=== PATIENT | female | born 1975 | race Caucasian/White ===

== ENCOUNTER 2024-12-25 21:37 | Emergency (ER) | payer OTHER ==
[2024-12-25] MEDS ORDERED: NA CHLORIDE 0.9% 1,000 ML ONE (22:05)
[2024-12-25] MEDS ORDERED: FAMOTIDINE 20 MG/2 ML VIAL IV ONE (22:05)
[2024-12-25 22:13] LABS: Absolute Lymphocytes (CBC) 3.7 K/uL (0.7-4.9); Hematocrit 42.1 % (36.0-45.0); Hemoglobin 14.2 g/dL (12.0-15.0); MCH 32.2 pg (27.0-35.0); MCHC 33.7 g/dL (32.0-36.0); MCV 95.6 fL (80-100); MPV 7.0 fL (7.6-11.3); Nucleated RBC Absolute Count 0.0 (0-0); Nucleated Red Blood Cells % 0.1 % (0-0); RBC Red Blood Cell Count 4.40 M/uL (3.86-4.86); White Blood Count 9.20 thou/uL (4.3-10.9)
[2024-12-25 22:34] LABS: ALT/SGPT 35.0 U/L (13-56); AST/SGOT 90.0 U/L (15-37); Albumin 3.9 g/dL (3.4-5.0); Albumin/Globulin Ratio 1.0 (1.1-1.8); Alkaline Phosphatase 206.0 U/L (45-117); Anion Gap 12.9 mEq/L (5.0-15.0); BUN Blood Urea Nitrogen 7.0 mg/dL (7-18); Globulin 3.9 g/dL (2.3-3.5); Glucose Level 94.0 mg/dL (74-106); Lipase 41.0 U/L (13-75); Potassium 3.9 mEq/L (3.5-5.1)
[2024-12-25 22:47] LABS: Anisocytosis 1+; Blood Morphology Comment NOTED (NOT SEEN); Macrocytosis SLIGHT; Microcytosis SLIGHT; White Blood Cell Scan OK (OK)
[2024-12-25] MEDS ORDERED: PANTOPRAZOLE 40 MG INJ ONE (23:33)
[2024-12-25] MEDS ORDERED: MAGNES/ALUMIN/SIMET 30ML UCUP ONE (23:34)
--- NOTE | 2024-12-26 00:12 | EDPHYS ---
Physician Documentation [facility] Name: Raquel Nguyen Age: 49 yrs Sex: Female : 1975 Arrival Date: 12/25/2024 Time: 21:37 Bed 3 Private MD: ED Physician Bonifacio Stahl HPI: 12/26 18:08 This 49 yrs old Female presents to ER via Ambulatory with complaints of nausea and tt7 vomiting. 18:08 Patient reports 2 weeks of nausea and vomiting, some associated intermittent epigastric tt7 burning pain, states she's had decreased appetite and not been able to tolerate eating much food over the past 2 days, past medical history of hypertension and rosacea. 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 - Infectious Disease History:: Denies. - Social history:: Smoking status: Patient reports the use of cigarette tobacco products, smokes one-half pack cigarettes per day, Patient uses alcohol, on a daily basis. 8-12 beers/day . ROS: 12/26 18:09 Constitutional: negative for fever. Cardiovascular: negative for chest pain. tt7 Respiratory: negative for shortness of breath. MS/Extremity: negative for injury and deformity. Skin: negative for rash. Neuro: negative for focal weakness. Abdomen/GI: Positive for abdominal pain, nausea and vomiting, Exam: 18:10 Constitutional: vital signs reviewed, well appearing, breath smells of alcohol. tt7 Head/Face: normocephalic, atraumatic. Eyes: no conjunctival injection, anicteric sclerae. ENT: mucus membranes moist. Neck: trachea midline, no JVD, no meningismus. Cardiovascular: regular rate and rhythm, no murmurs, no rubs, no lower extremity edema. Respiratory: normal respiratory effort, no accessory muscle use, lungs CTAB. Abdomen/GI: soft, nondistended, nontender, no guarding or rebound, negative Hopper's sign, no McBurney point tenderness. Back: normal ROM. Skin: warm, dry, intact, normal turgor, normal color, no rash. MS/ Extremity: normal ROM of extremities, no gross deformities. Neuro: alert and oriented with appropriate mental status, normal speech, follows commands, no focal neurologic deficits. Psych: appropriate mood and affect. Vital Signs: 12/25 21:49 BP 169 / 109; Pulse 90; Resp 16; Temp 97.8; Pulse Ox 100% on R/A; kb4 22:59 BP 133 / 91; Pulse 88; Resp 17 S; Pulse Ox 100% on R/A; lg3 12/26 00:20 BP 146 / 99; Pulse 88; Resp 18; Pulse Ox 100% on R/A; mf3 MDM: 12/25 21:51 Medical Screening Exam initiated tt7 12/26 18:11 Differential diagnosis: Nonspecific abd pain, gastritis, pancreatitis, viral tt7 gastroenteritis. Data reviewed: vital signs, nurses notes, lab test result(s), amylase and lipase, Beta HCG: CBC, drug level(s), electrolytes, hepatic panel. I considered the following discharge prescriptions or medication management in the emergency department Antibiotics: At this time antibiotics are not recommended. Test considered but Not performed: CT: Considered CT imaging of the abdomen/pelvis but not feel that this is necessary at this time given benign abdominal exam and low suspicion for acute surgical pathology. Historians other than the Patient: Spouse/Significant Other: Provided collateral history regarding chronicity of symptoms and medical history. Care significantly affected by the following Social Determinants of Health: Misuse of alcohol and/or drugs. ED course: 49-year-old female with epigastric burning pain and associated nausea and vomiting, her vital signs are stable, abdominal exam is benign, she was treated with droperidol for her nausea and famotidine for her pain, was resuscitated with IV fluids, standard abdominal pain laboratory studies ordered, overall these are reassuring, no significant leukocytosis to be concerned about infection, no significant anemia, chemistry shows overall normal electrolytes, lipase is normal, test negative, patient's ethanol is elevated above 160, this provides further evidence to support my initial impression of alcoholic gastritis, patient was treated with Maalox and Protonix, her symptoms improved significantly and she requested to be discharged from the emergency department, emergency department evaluation is reassuring. I do not suspect life-threatening process. Patient is stable and not in need of emergent medical intervention. I had a detailed discussion with the patient regarding the historical points, exam findings, emergency department evaluation, diagnostic results, and the discharge diagnosis. I discussed outpatient management of the patient's condition. I discussed the need for outpatient follow-up with primary care and relevant specialist. I discussed return precautions including the need to return to the ED if symptoms do not improve, worsen, or if there are any questions or concerns that arise at home. The patient was discharged in stable condition. 12/25 21:58 Order name: CBC with Diff; Complete Time: 23:06 tt7 12/25 21:58 Order name: CMP; Complete Time: 23:06 tt7 12/25 21:58 Order name: Lipase; Complete Time: 23:06 tt7 12/25 21:58 Order name: Test, Serum; Complete Time: 23:06 tt7 12/25 22:03 Order name: ETOH Level; Complete Time: 23:06 tt7 12/25 22:18 Order name: CBC Smear Scan; Complete Time: 23:06 EDMS 12/25 21:58 Order name: IV Saline Lock; Complete Time: 22:00 tt7 12/25 21:58 Order name: Labs collected and sent; Complete Time: 22:00 tt7 Administered Medications: 12/25 22:11 Drug: Famotidine IVP 20 mg IVP once; dilute with 10 mL 0.9% NaCl; give over 2 minutes 3 Route: IVP; Site: right antecubital; 12/26 00:22 Follow up: Response: No adverse reaction [facility] 12/25 22:11 Drug: NS 0.9% IV 1000 ml IV at 1 bolus Per protocol; to be given as a bolus over 60 mf3 minutes Route: IV; Rate: 1 bolus; Site: right antecubital; 12/26 00:22 Follow up: Response: No adverse reaction; IV Status: Completed infusion 3 12/25 22:11 Drug: Droperidol IVP 1.25 mg IVP once Route: IVP; Site: right antecubital; 3 23:21 Follow up: Response: No adverse reaction; Nausea is decreased cp4 12/26 00:22 Follow up: Response: No adverse reaction 3 12/25 23:38 Drug: Alum-Mag Hydroxide-Simeth PO Suspension (200 mg-200 mg-20 mg/5 mL) 30 ml PO once 3 Route: PO; 12/26 00:21 Follow up: Response: No adverse reaction 3 12/25 23:39 Drug: Pantoprazole IVP 40 mg IVP once Route: IVP; Site: right antecubital; 3 12/26 00:21 Follow up: Response: No adverse reaction 3 Disposition: 18:17 Co-signature as Attending Physician, Bonifacio Stahl DO. tt7 Disposition Summary: 12/26/24 00:11 Discharge Ordered Notes: Location: Home tt7 Problem: new tt7 Symptoms: are resolved tt7 Condition: Stable tt7 Diagnosis - Acute gastritis without bleeding tt7 - Nausea with vomiting, unspecified tt7 Followup: tt7 - With: Emergency Department - When: As needed - Reason: Followup: tt7 - With: Private Physician - When: 1 - 2 days - Reason: Recheck today's complaints, Re-evaluation by your physician Discharge Instructions: - Discharge Summary Sheet tt7 - Gastritis, Adult, [id number] tt7 Forms: - Medication Reconciliation Form tt7 - Antibiotic Education tt7 - Prescription Opioid Use tt7 - Patient Portal Instructions tt7 - Leadership Thank You Letter tt7 Prescriptions: - Nexium 20 mg Oral Capsule - take 1 capsule ORAL route once daily; 20 capsule; Refills: 0, Product Selection tt7 Permitted - Pepcid 20 mg Oral Tablet - take 1 tablet ORAL route once daily for 10 days; 10 tablet; Refills: 0, Product tt7 Selection Permitted Signatures: Dispatcher [employer] EDRoseline Rojas RN RN kb4 Malissa Navas RN RN mf3 Bonifacio Stahl DO DO tt7 Raegan Ravi 4 Corrections: (The following items were deleted from the chart) 12/25 21:59 21:59 CBC+H.LAB.BRZ ordered. EDMS EDMS 21:59 21:59 COMPREHENSIVE METABOLIC PANEL+C.LAB.BRZ ordered. EDMS EDMS 21:59 21:59 LIPASE+C.LAB.BRZ ordered. EDMS EDMS 21:59 21:59 TEST, SERUM+SC.LAB.BRZ ordered. EDMS EDMS
--- NOTE | 2024-12-26 00:12 | ER ---
Nurse's Notes [facility] Name: Raquel Nguyen Age: 49 yrs Sex: Female : 1975 Arrival Date: 12/25/2024 Time: 21:37 Bed 3 Private MD: Diagnosis: Acute gastritis without bleeding;Nausea with vomiting, unspecified Presentation: 12/25 21:49 Chief complaint: Patient states: N/V started 2wks ago, progressively gotten worse in kb4 the past 2-3 days, vomiting "white frothy liquid". Coronavirus screen: At this time, unable to obtain information related to travel outside the [place] Ebola Screen: No symptoms or risks identified at this time. Initial Sepsis Screen: Does the patient meet any 2 criteria? No. Patient's initial sepsis screen is negative. Does the patient have a suspected source of infection? No. Patient's initial sepsis screen is negative. Risk Assessment: Do you want to hurt yourself or someone else? Patient reports no desire to harm self or others. Onset of symptoms was December 13, 2024. 21:49 Method Of Arrival: Ambulatory [facility] 21:49 Acuity: YISEL 3 kb4 Triage Assessment: 21:53 Headache History: Denies prior headaches. General: Appears in no apparent distress. kb4 uncomfortable, Behavior is calm, cooperative, Smells of alcohol. Pain: Pain currently is 6 out of 10 on a pain scale. Pain began 2-3 days ago. Pain: Also complains of decreased appetite, nausea. Neuro: Level of Consciousness is awake, alert, obeys commands, Oriented to person, place, time, situation. 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 - Infectious Disease History:: Denies. - Social history:: Smoking status: Patient reports the use of cigarette tobacco products, smokes one-half pack cigarettes per day, Patient uses alcohol, on a daily basis. 8-12 beers/day . Screenin:[address] [facility] ED Fall Risk Assessment (Adult) History of falling in the last 3 months, cp4 including since admission No falls in past 3 months (0 pts) Confusion or Disorientation No (0 pts) Intoxicated or Sedated No (0 pts) Impaired Gait No (0 pts) Mobility Assist Device Used No (0 pt) Altered Elimination No (0 pt) Score/Fall Risk Level 0 - 2 = Low Risk Oriented to surroundings, Maintained a safe environment, Assessed \\T\\ reinforced patient's understanding of fall precautions, Hourly rounding (assess needs \\T\\ fall precautionary measures) done. Abuse screen: Denies threats or abuse. Denies injuries from another. Nutritional screening: No deficits noted. Tuberculosis screening: No symptoms or risk factors identified. Never had TB. Assessment: 21:58 General: Appears in no apparent distress. uncomfortable, Behavior is calm, cooperative, cp4 appropriate for age. Pain: Complains of pain in abdomen Pain does not radiate. Pain currently is 7 out of 10 on a pain scale. Neuro: Level of Consciousness is awake, alert, obeys commands, Oriented to person, place, time, situation. Cardiovascular: Patient's skin is warm and dry. Respiratory: Airway is patent Respiratory effort is even, unlabored. GI: Abdomen is round non-distended, Bowel sounds present X 4 quads. Abd is soft and non tender X 4 quads. Reports nausea, vomiting. : No signs and/or symptoms were reported regarding the genitourinary system. EENT: No signs and/or symptoms were reported regarding the EENT system. Derm: No signs and/or symptoms reported regarding the dermatologic system. Musculoskeletal: No signs and/or symptoms reported regarding the musculoskeletal system. Vital Signs: 21:49 BP 169 / 109; Pulse 90; Resp 16; Temp 97.8; Pulse Ox 100% on R/A; kb4 22:59 BP 133 / 91; Pulse 88; Resp 17 S; Pulse Ox 100% on R/A; lg3 12/26 00:20 BP 146 / 99; Pulse 88; Resp 18; Pulse Ox 100% on R/A; mf3 ED Course: 12/25 21:40 Patient arrived in ED. im 21:46 Sarah Sierra, RN is Primary Nurse. lg3 21:50 No provider procedures requiring assistance completed. Inserted saline lock: 20 gauge cp4 in right antecubital area, using aseptic technique. Blood collected. Flushed with 10 mL NS. 21:51 Bonifacio Stahl DO is Attending Physician. tt7 21:51 Triage completed. kb4 21:53 Arm band placed on right wrist. kb4 21:58 Bed in low position. Call light in reach. Side rails up X2. cp4 12/26 00:21 IV discontinued, intact, bleeding controlled, No redness/swelling at site. [facility] 00:21 Provided Education on: pt educated on discharge. [facility] Administered Medications: 12/25 22:11 Drug: Famotidine IVP 20 mg IVP once; dilute with 10 mL 0.9% NaCl; give over 2 minutes [facility] Route: IVP; Site: right antecubital; 12/26 00:22 Follow up: Response: No adverse reaction [facility] 12/25 22:11 Drug: NS 0.9% IV 1000 ml IV at 1 bolus Per protocol; to be given as a bolus over 60 3 minutes Route: IV; Rate: 1 bolus; Site: right antecubital; 12/26 00:22 Follow up: Response: No adverse reaction; IV Status: Completed infusion [facility] 12/25 22:11 Drug: Droperidol IVP 1.25 mg IVP once Route: IVP; Site: right antecubital; [facility] 23:21 Follow up: Response: No adverse reaction; Nausea is decreased [facility] 12/26 00:22 Follow up: Response: No adverse reaction [facility] 12/25 23:38 Drug: Alum-Mag Hydroxide-Simeth PO Suspension (200 mg-200 mg-20 mg/5 mL) 30 ml PO once [facility] Route: PO; 12/26 00:21 Follow up: Response: No adverse reaction [facility] 12/25 23:39 Drug: Pantoprazole IVP 40 mg IVP once Route: IVP; Site: right antecubital; [facility] 12/26 00:21 Follow up: Response: No adverse reaction [facility] Medication: 12/25 21:58 VIS not applicable for this client. cp4 Outcome: 12/26 00:11 Discharge ordered by . tt7 00:21 Discharged to [facility] 00:21 Discharged to home 00:21 Condition: good 00:21 Discharge instructions given to patient, family, Instructed on discharge instructions, follow up and referral plans. Demonstrated understanding of instructions, follow-up care, medications, Prescriptions given X 2, 00:22 Patient left the ED. mf3 Signatures: Sarah Sierra RN RN lg3 Kay Lance Christina cp4 Roseline Lopez RN RN kb4 Malissa Navas RN RN mf3 Bonifacio Stahl, DO JACKSON tt7
[2024-12-26 00:57] VITALS: TEMP 97.8; O2SAT 100
[2024-12-26 01:00] VITALS: BP 146/99
== END 2024-12-26 00:22 | disposition home or self-care (01) ==
LOC: ER 21:37
DX: K29.00 Acute gastritis without bleeding (principal); R11.2 Nausea with vomiting, unspecified; I10 Essential (primary) hypertension; L71.9 Rosacea, unspecified; F17.210 Nicotine dependence, cigarettes, uncomplicated
CPT/HCPCS: 96361; 85025; 36415; 84703; 83690; 80053; 96375; 96374; 99284; 82077; J2470; J1790; J7030

== ENCOUNTER 2025-01-03 13:28 | Emergency (ER) | payer OTHER ==
[2025-01-03] MEDS ORDERED: NA CHLORIDE 0.9% 1,000 ML ONE (14:55)
[2025-01-03] MEDS ORDERED: FAMOTIDINE 20 MG/2 ML VIAL IV ONE (14:55)
[2025-01-03 15:01] LABS: Absolute Lymphocytes (CBC) 1.1 K/uL (0.7-4.9); Hematocrit 40.7 % (36.0-45.0); Hemoglobin 13.6 g/dL (12.0-15.0); MCH 32.6 pg (27.0-35.0); MCHC 33.5 g/dL (32.0-36.0); MCV 97.1 fL (80-100); MPV 7.2 fL (7.6-11.3); Nucleated RBC Absolute Count 0.0 (0-0); Nucleated Red Blood Cells % 0.0 % (0-0); RBC Red Blood Cell Count 4.19 M/uL (3.86-4.86); White Blood Count 4.00 thou/uL (4.3-10.9)
[2025-01-03 15:20] LABS: ALT/SGPT 47.0 U/L (13-56); AST/SGOT 121.0 U/L (15-37); Albumin 3.5 g/dL (3.4-5.0); Albumin/Globulin Ratio 1.1 (1.1-1.8); Alkaline Phosphatase 203.0 U/L (45-117); Anion Gap 6.1 mEq/L (5.0-15.0); BUN Blood Urea Nitrogen 8.0 mg/dL (7-18); Globulin 3.3 g/dL (2.3-3.5); Glucose Level 119.0 mg/dL (74-106); Lipase 19.0 U/L (13-75); Potassium 4.1 mEq/L (3.5-5.1)
[2025-01-03 16:01] LABS: Anisocytosis 1+; Blood Morphology Comment NOTED (NOT SEEN); White Blood Cell Scan OK (OK)
[2025-01-03] MEDS ORDERED: DIPHENHYDRAMINE 50 MG/ML VIAL ONE (16:17)
[2025-01-03] MEDS ORDERED: METHYLPREDNISOLONE 40 MG INJ ONE (16:17)
[2025-01-03] MEDS ORDERED: WATER FOR INJ,STERILE 10 ML ONE (16:21)
[2025-01-03] MEDS ORDERED: METOCLOPRAMIDE 10 MG/2mL INJ ONE (16:30)
[2025-01-03] MEDS ORDERED: NA CHLORIDE 0.9% 50 ML ONE (16:38)
--- NOTE | 2025-01-03 17:37 | RAD REPORT ---
EXAMINATION: CT ABDOMEN AND PELVIS WITH CONTRAST CLINICAL INDICATION: Abdominal pain TECHNIQUE: CT abdomen and pelvis was performed, after the administration of 100 cc Isovue-300.. Sagit sheldon and coronal reconstructions were obtained. One or more of the following dose reduction techniques were used: Automated exposure control, adjustment of the mA and kV according to patient si ze, and iterative reconstruction. Unless otherwise specified, incidental findings do not require dedicated imaging follow-up. [id number]. Oral contrast was not given which limits evaluation of bowel and appendix. COMPARISON: .None FINDINGS: Marked fatty liver. Cholecystectomy Post surgical changes involve the stomach. The spleen, pancreas, adrenals and kidneys appear unremarkable Normal appendix. The wall of the hepatic flexure of the colon appears mildly thickened. No adnexal mass. No evidence of diverticulitis. : IMPRESSION: Marked fatty liver. The wall of the hepatic flexure of the transverse colon appears mildly thickened. This may be seconda ry to inflammation or incomplete distention.
[2025-01-03] MEDS ORDERED: CEFTRIAXONE 1000 MG/VIAL ONE (17:54)
[2025-01-03] MEDS ORDERED: METRONIDAZOLE 500mg IVPB 500 MG/100 ML BAG IV ONE (17:55)
[2025-01-03] MEDS ORDERED: NA CHLORIDE 0.9% 100 ML ONE (17:55)
--- NOTE | 2025-01-03 18:05 | ER ---
Nurse's Notes [facility] Name: Raquel Nguyen Age: 49 yrs Sex: Female : 1975 Arrival Date: 01/03/2025 Time: 13:28 Bed 8 Private MD: Diagnosis: Infectious gastroenteritis and colitis, unspecified;Fatty (change of) liver, not elsewhere classified Presentation: 01/03 14:08 Chief complaint: Patient states: EPIGASTRIC PAIN, N/V THAT BEGAN FRIDAY. PT REPORTS dd2 SHE WAS HERE LAST WEEK WITH SAME SYMPTOMS, SENT HOME WITH GASTRITIS DX. Coronavirus screen: At this time, the client does not indicate any symptoms associated with coronavirus-19. Ebola Screen: No symptoms or risks identified at this time. Initial Sepsis Screen: Does the patient meet any 2 criteria? No. Patient's initial sepsis screen is negative. Does the patient have a suspected source of infection? No. Patient's initial sepsis screen is negative. Risk Assessment: Do you want to hurt yourself or someone else? Patient reports no desire to harm self or others. Onset of symptoms was December 31, 2024. 14:08 Method Of Arrival: Ambulatory dd2 14:08 Acuity: YISEL 3 dd2 Triage Assessment: 14:10 General: Appears in no apparent distress. uncomfortable, Behavior is calm, cooperative, dd2 appropriate for age. Pain: Complains of pain in epigastric area. GI: Reports epigastric pain, intolerance of fluids, intolerance of food, nausea, vomiting. 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 - Infectious Disease History:: Denies. - Social history:: Smoking status: Patient reports the use of cigarette tobacco products, smokes one-half pack cigarettes per day. Screenin:56 [facility] ED Fall Risk Assessment (Adult) History of falling in the last 3 months, af3 including since admission No falls in past 3 months (0 pts) Confusion or Disorientation No (0 pts) Intoxicated or Sedated No (0 pts) Impaired Gait No (0 pts) Mobility Assist Device Used No (0 pt) Altered Elimination No (0 pt) Score/Fall Risk Level 0 - 2 = Low Risk Oriented to surroundings, Maintained a safe environment, Educated pt \T\ family on fall prevention, incl call for assistance when getting out of bed. Abuse screen: Denies threats or abuse. Denies injuries from another. Nutritional screening: No deficits noted. Tuberculosis screening: No symptoms or risk factors identified. Assessment: 14:56 General: Appears in no apparent distress. uncomfortable, well groomed, well developed, af3 Behavior is calm, cooperative, appropriate for age. Pain: Complains of pain in epigastric area Pain currently is 8 out of 10 on a pain scale. Quality of pain is described as burning, sharp, Pain began yesterday Current management is with zofran. Neuro: Level of Consciousness is awake, alert, obeys commands, Oriented to person, place, time, situation, Appropriate for age. Cardiovascular: Patient's skin is warm and dry. Respiratory: Airway is patent Respiratory effort is even, unlabored, Respiratory pattern is regular, symmetrical. GI: Reports upper abdominal pain, nausea. 18:03 Reassessment: Patient appears in no apparent distress at this time. No changes from af3 previously documented assessment. Patient and/or family updated on plan of care and expected duration. Pain level reassessed. Patient states feeling better. Patient states symptoms have improved. 18:06 Reassessment: Discharge pending antibiotic completion . af3 19:59 GI: br2 Vital Signs: 14:08 BP 156 / 118; Pulse 98; Resp 17; Temp 97.9; Pulse Ox 100% on R/A; Pain 10/10; dd2 14:59 BP 157 / 101; Pulse 73; Resp 15; Pulse Ox 100% ; jl7 15:43 BP 145 / 99; Pulse 71; Resp 15; Pulse Ox 98% ; jl7 16:23 BP 152 / 97; Pulse 80; Resp 15; Pulse Ox 99% ; jl7 17:07 BP 163 / 104; Pulse 73; Resp 15; Pulse Ox 99% ; jl7 18:04 BP 131 / 95; Pulse 76; Resp 18; Pulse Ox 100% on R/A; af3 18:42 BP 131 / 95; Pulse 80; Resp 18; Pulse Ox 100% on R/A; af3 19:59 BP 151 / 102; Pulse 72; Resp 18; Temp 97.1(TE); Pulse Ox 98% on R/A; Pain 2/10; br2 14:08 Pain Scale: Adult dd2 19:59 Pain Scale: Adult br2 ED Course: 13:30 Patient arrived in ED. im 13:40 Glendy Abdullahi PA-C is PHCP. sb4 13:40 Saúl Caballero MD is Attending Physician. sb4 14:10 Triage completed. dd2 14:10 Arm band placed on left wrist. dd2 14:40 Lara Corral, NOE is Primary Nurse. af3 14:56 Patient has correct armband on for positive identification. Bed in low position. Call af3 light in reach. Provided Education on: call light use . 14:56 No provider procedures requiring assistance completed. Initial lab(s) drawn, by me, af3 sent to lab. Inserted saline lock: 20 gauge in right antecubital area, using aseptic technique. Blood collected. Flushed with 10 mL NS. 17:07 CT Abd/Pelvis - IV Contrast Only In Process Unspecified. EDMS 18:05 Sanjiv Hill MD is Referral Physician. sb4 19:59 IV discontinued, intact, bleeding controlled, No redness/swelling at site. Pressure br2 dressing applied. Administered Medications: 14:59 Drug: Famotidine IVP 20 mg IVP once; dilute with 10 mL 0.9% NaCl; give over 2 minutes jl7 Route: IVP; Site: right antecubital; 15:44 Follow up: Response: No adverse reaction af3 14:59 Drug: NS 0.9% IV 1000 ml IV at 1 bolus Per protocol; to be given as a bolus over 60 jl7 minutes Route: IV; Rate: 1 bolus; Site: right antecubital; 16:00 Follow up: Response: No adverse reaction; IV Status: Completed infusion; IV Intake: af3 1000ml 16:48 Drug: metoCLOPramide IVP 10 mg IVP once; over 1 to 2 minutes Route: IVP; Site: right af3 antecubital; 17:00 Follow up: Response: No adverse reaction af3 16:49 Drug: MethylPrednisoLONE IVP 60 mg IVP once Route: IVP; Site: right antecubital; af3 17:00 Follow up: Response: No adverse reaction af3 16:49 Drug: diphenhydrAMINE IVP 25 mg IVP once Route: IVP; Site: right antecubital; af3 17:00 Follow up: Response: No adverse reaction af3 18:02 Drug: metroNIDAZOLE IVPB 500 mg 100 ml IVPB at 200 ml/hr once over 30 mins Volume: 100 af3 ml; Route: IVPB; Rate: 200 ml/hr; Infused Over: 30 mins; Site: right antecubital; 19:45 Follow up: Response: No adverse reaction; IV Status: Completed infusion; IV Intake: br2 100ml 18:59 Drug: Rocephin IV 1 grams IV at calculated rate once; Given slow IV push per pharmacy af3 instructions Route: IV; Rate: calculated rate; Site: right antecubital; Medication: 14:56 VIS not applicable for this client. af3 Intake: 16:00 IV: 1000ml; Total: 1000ml. af3 19:45 IV: 100ml; Total: 1100ml. br2 Outcome: 18:05 Discharge ordered by MD. sb4 19:59 Discharged to home ambulatory, br2 19:59 Condition: improved 19:59 Discharge instructions given to patient, Instructed on discharge instructions, Demonstrated understanding of instructions, follow-up care, medications, Prescriptions given X 4, 20:01 Patient left the ED. br2 Signatures: Dispatcher [employer] EDLopez Soriano RN RN jl7 Glendy Abdullahi PA-C PA-C sb4 Kay Lance Belinda, RN RN br2 Lara Corral RN RN af3 ROSALVA STEARNS RN RN dd2 Corrections: (The following items were deleted from the chart) 18:06 18:02 Rocephin IV 1 grams IV at calculated rate in right antecubital af3 af3
--- NOTE | 2025-01-03 18:05 | EDPHYS ---
Physician Documentation [facility] Name: Raquel Nguyen Age: 49 yrs Sex: Female : 1975 Arrival Date: 01/03/2025 Time: 13:28 Bed 8 Private MD: ED Physician Saúl Caballero HPI: 01/03 16:44 This 49 yrs old Female presents to ER via Ambulatory with complaints of Abdominal Pain, sb4 Headache, Vomiting, dehydrated. 16:44 Patient reports nausea, vomiting, diarrhea, and upper abdominal pain. She states that sb4 this initially began about a week ago, was seen here, told she had gastritis, was prescribed medications, and stated that her symptoms did improve for a few days. However, she states that they slowly returned over the past few days. She states that she has been vomiting a lot and cannot hold anything down. She states that she is vomiting a "white foam ". 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 - Infectious Disease History:: Denies. - Social history:: Smoking status: Patient reports the use of cigarette tobacco products, smokes one-half pack cigarettes per day. ROS: 16:44 Constitutional: Negative for fever, chills, and weight loss, sb4 16:44 Abdomen/GI: Positive for abdominal pain, nausea, vomiting, and diarrhea, 16:44 All other systems are negative, Exam: 16:45 Head/Face: Normocephalic, atraumatic. Eyes: Extra-ocular motions intact. Periorbital sb4 areas with no swelling, redness, or edema. Cardiovascular: Regular rate and rhythm with a normal S1 and S2. Respiratory: No increased work of breathing, no retractions or nasal flaring. Abdomen/GI: Soft, non-tender, no distension. Skin: Warm, dry with normal turgor. Normal color with no rashes, no lesions, and no evidence of cellulitis. 16:45 Constitutional: The patient appears in no acute distress, alert, awake, 16:45 ENT: Mouth: Oral mucosa: dry, Vital Signs: 14:08 BP 156 / 118; Pulse 98; Resp 17; Temp 97.9; Pulse Ox 100% on R/A; Pain 10/10; dd2 14:59 BP 157 / 101; Pulse 73; Resp 15; Pulse Ox 100% ; jl7 15:43 BP 145 / 99; Pulse 71; Resp 15; Pulse Ox 98% ; jl7 16:23 BP 152 / 97; Pulse 80; Resp 15; Pulse Ox 99% ; jl7 17:07 BP 163 / 104; Pulse 73; Resp 15; Pulse Ox 99% ; jl7 18:04 BP 131 / 95; Pulse 76; Resp 18; Pulse Ox 100% on R/A; af3 18:42 BP 131 / 95; Pulse 80; Resp 18; Pulse Ox 100% on R/A; af3 19:59 BP 151 / 102; Pulse 72; Resp 18; Temp 97.1(TE); Pulse Ox 98% on R/A; Pain 2/10; br2 14:08 Pain Scale: Adult dd2 19:59 Pain Scale: Adult br2 MDM: 13:40 Medical Screening Exam initiated sb4 16:46 Differential diagnosis: gastritis, gastroesophageal reflux disease, non-specific abd sb4 pain, pancreatitis, Peptic Ulcer Disease. 18:05 Data reviewed: vital signs, nurses notes, lab test result(s), radiologic studies, and sb4 as a result, I will discharge patient. Counseling: I had a detailed discussion with the patient and/or guardian regarding the historical points, exam findings, and any diagnostic results supporting the discharge/admit diagnosis, lab results, radiology results, the need for outpatient follow up, for definitive care, to return to the emergency department if symptoms worsen or persist or if there are any questions or concerns that arise at home. Special discussion: Based on the patient's Hx, exam, and Dx evaluation, there is no indication for emergent surgery or inpatient Tx. It is understood by the patient/guardian that if the Sx's persist or worsen they need to return immediately for re-evaluation. Based on the presenting symptoms and work-up in the emergency department, I discussed in detail the need to arrange with the PCP or specialist an outpatient procedure, esophagogastroduodenoscopy by the GI specialist, Based on the history and exam findings, there is no indication for further emergent testing or inpatient evaluation. I discussed with the patient/guardian the need to see the sales route driver for further evaluation of the symptoms. 01/03 14:14 Order name: CBC with Diff; Complete Time: 16:02 sb4 01/03 14:14 Order name: CMP; Complete Time: 15:20 sb4 01/03 14:14 Order name: Lipase; Complete Time: 15:20 sb4 01/03 14:14 Order name: ETOH Level; Complete Time: 15:20 sb4 01/03 14:14 Order name: Test, Serum; Complete Time: 15:43 sb4 01/03 16:02 Order name: CBC Smear Scan; Complete Time: 16:02 EDMS 01/03 14:14 Order name: CT Abd/Pelvis - IV Contrast Only; Complete Time: 17:39 sb4 01/03 14:14 Order name: IV Saline Lock; Complete Time: 14:56 sb4 01/03 14:14 Order name: Labs collected and sent; Complete Time: 14:56 sb4 01/03 17:40 Order name: PO challenge; Complete Time: 17:51 sb4 Administered Medications: 14:59 Drug: Famotidine IVP 20 mg IVP once; dilute with 10 mL 0.9% NaCl; give over 2 minutes jl7 Route: IVP; Site: right antecubital; 15:44 Follow up: Response: No adverse reaction af3 14:59 Drug: NS 0.9% IV 1000 ml IV at 1 bolus Per protocol; to be given as a bolus over 60 jl7 minutes Route: IV; Rate: 1 bolus; Site: right antecubital; 16:00 Follow up: Response: No adverse reaction; IV Status: Completed infusion; IV Intake: af3 1000ml 16:48 Drug: metoCLOPramide IVP 10 mg IVP once; over 1 to 2 minutes Route: IVP; Site: right af3 antecubital; 17:00 Follow up: Response: No adverse reaction af3 16:49 Drug: MethylPrednisoLONE IVP 60 mg IVP once Route: IVP; Site: right antecubital; af3 17:00 Follow up: Response: No adverse reaction af3 16:49 Drug: diphenhydrAMINE IVP 25 mg IVP once Route: IVP; Site: right antecubital; af3 17:00 Follow up: Response: No adverse reaction af3 18:02 Drug: metroNIDAZOLE IVPB 500 mg 100 ml IVPB at 200 ml/hr once over 30 mins Volume: 100 af3 ml; Route: IVPB; Rate: 200 ml/hr; Infused Over: 30 mins; Site: right antecubital; 19:45 Follow up: Response: No adverse reaction; IV Status: Completed infusion; IV Intake: br2 100ml 18:59 Drug: Rocephin IV 1 grams IV at calculated rate once; Given slow IV push per pharmacy af3 instructions Route: IV; Rate: calculated rate; Site: right antecubital; Disposition Summary: 01/03/25 18:05 Discharge Ordered Notes: Location: Home sb4 Problem: new sb4 Symptoms: have improved sb4 Condition: Stable sb4 Diagnosis - Infectious gastroenteritis and colitis, unspecified sb4 - Fatty (change of) liver, not elsewhere classified sb4 Followup: sb4 - With: Sanjiv Hill MD - When: As needed - Reason: Further diagnostic work-up, Recheck today's complaints, Re-evaluation by your physician Discharge Instructions: - Discharge Summary Sheet sb4 - Fatty Liver Disease sb4 - Colitis sb4 Forms: - Work release form sb4 - Antibiotic Education sb4 - Patient Portal Instructions sb4 - Leadership Thank You Letter sb4 Prescriptions: - Augmentin 875-125 mg Oral Tablet - take 1 tablet ORAL route every 12 hours for 10 days; 20 tablet; Refills: 0, sb4 Product Selection Permitted - Flagyl 500 mg Oral Tablet - take 1 tablet ORAL route every 12 hours for 7 days; 14 tablet; Refills: 0, sb4 Product Selection Permitted - promethazine 25 mg Oral Tablet - take 1 tablet ORAL route every 6 hours As needed; 20 tablet; Refills: 0, sb4 Product Selection Permitted - ondansetron 8 mg Oral Tablet,disintegrating - take 1 tablet ORAL route every 8 hours; 10 tablet; Refills: 0, Product sb4 Selection Permitted Signatures: Dispatcher [employer] Lopez Howard RN RN [email or web address] Glendy Abdullahi PA-C PA-C sb4 Lara Corral RN RN af3 ROSALVA STEARNS RN RN dd2 Elizabeth Guillen RN br2 Corrections: (The following items were deleted from the chart) 14:14 14:14 Abdomen Pelvis W [id number] ordered. EDMS EDMS
[2025-01-03 21:04] VITALS: BP 151/102; TEMP 97.1; O2SAT 98
== END 2025-01-03 20:01 | disposition home or self-care (01) ==
LOC: ER 13:28
DX: A09 Infectious gastroenteritis and colitis, unspecified (principal); K76.0 Fatty (change of) liver, not elsewhere classified; F17.210 Nicotine dependence, cigarettes, uncomplicated
CPT/HCPCS: 96365; 96361; 85025; 36415; 84703; 83690; 80053; 74177; 96375; 99284; 96366; 82077; Q9967; J2765; J1200; J7030; J2919; J0696